=== PATIENT | female | born 1970 | race African-American/Black ===

== ENCOUNTER 2017-02-03 07:56 | Emergency (ER) | payer BC ==
[~2017-02-03] VITALS: Ht 165.1 cm; Wt 98.6 kg
[~2017-02-03 07:56] MED LIST: NOHOMEMEDS
[2017-02-03 08:54] LABS: HEMATOCRIT 39.6 % (36.0-46.0); MCH 30.8 PG (29.0-34.0); MCHC 33.8 G/DL (30.0-36.0); MEAN PLAT.VOLUME 10.5 uM^3 (9.5-12.4); PLATELET COUNT 254 K/uL (156-360); RBC DIS.WIDTH-CV 12.6 % (11.8-14.6); RBC DIS.WIDTH-SD 41.1 % (39-53); RED BLOOD COUNT 4.35 M/uL (3.80-5.20); WHITE BLOOD COUNT 8.8 K/uL (4.1-10.2)
[2017-02-03 09:04] LABS: CHLORIDE 108 mEq/L (99-109); POTASSIUM 4.2 mEq/L (3.7-5.4); SODIUM 139 mEq/L (136-147)
[2017-02-03 09:05] LABS: GLUCOSE 100 mg/dL (70-99)
[2017-02-03 09:07] LABS: ANION GAP 7 MEQ/L (2-14)
[2017-02-03 09:09] LABS: GFR ESTIMATE (CALCULATED) > 59 mL/min/
[2017-02-03 09:10] LABS: UREA NITROGEN (BUN) 11 mg/dL (9-23)
[2017-02-03 09:15] LABS: TROP-I INTERPRETATION NEGATIVE; TROPONIN-I < 0.01 ng/mL (0.0-0.30)
[2017-02-03 09:54] LABS: D-DIMER ELISA 0.17 mg/L FEU (< 0.57)
[2017-02-03 11:48] LABS: TROP-I INTERPRETATION NEGATIVE; TROPONIN-I < 0.01 ng/mL (0.0-0.30)
[2017-02-03] MEDS ORDERED: ZITHROMAX250 MG PO (12:02)
[2017-02-03 12:25] VITALS: BP 114/81
== END 2017-02-03 12:26 | disposition home or self-care (01) ==
LOC: EME 07:56
PROVIDERS: Emergency Medicine
DX: J18.9 Pneumonia, unspecified organism (principal); R07.9 Chest pain, unspecified; F17.200 Nicotine dependence, unspecified, uncomplicated
CPT/HCPCS: 71020; 80048; 84484; 85027; 85379; 93005; 99281; 99284